=== PATIENT | male | born 1965 | race African-American/Black ===

== ENCOUNTER → 2018-01-17 | Outpatient (CLI) | payer OTHER ==
--- NOTE | 2018-01-17 11:19 | XCELERA REPORT ---
[address] [address] Lower Extremity Venous Evaluation Name: OLAYINKA QUIROGA Age: 52 yrs Gender: Male : 1965 Patient Status: Outpatient Patient Location: Study Date: 01/17/2018 10:41 AM Procedure: Color flow and duplex imaging of the veins of the left lower extremity as well as the right Common Femoral vein. Reason For Study: LLE PAIN Ordering Physician: ROSIO JACOBSON Performed By: Saranya Alex Right Sided Venous Evaluation The right common femoral vein is fully compressible. Spontaneous and phasic flow is present in the right common femoral vein. Left Sided Venous Evaluation Normal vessel filling wall to wall, compression and augmentation as well as Colour flow down to the infrageniculate veins. Lucent, non vascular Popliteal mass, 2.7 x 0.9 x 2.1 cms. Interpretation Summary No duplex evidence of DVT or obstruction in the left lower extremity nor in the right Common Femoral vein. Left sided Popliteal cyst noted. : ROSIO JACOBSON > Gustavo Aleman
== END ==
LOC: SP 10:06
PROVIDERS: ATTEND Nurse Practitioner Community Health
DX: M79.605 Pain in left leg (principal)
CPT/HCPCS: 93971